=== PATIENT | male | born 1965 ===

== ENCOUNTER 2018-09-29 12:45 | Day surgery (SDC) | payer OTHER ==
[~2018-09-29] VITALS: Ht 182.9 cm; Wt 84.0 kg
== END 2018-09-29 17:40 | disposition home or self-care (01) ==
LOC: ORSCSDS 12:45
PROVIDERS: Student in an Organized Health Care Education/Training Program
PROC: 0DJD8ZZ Inspection of Lower Intestinal Tract, Via Natural or Artificial Opening Endoscopic (ICD-10-PCS; principal; 2018-09-29 14:00)
DX: Z12.11 Encounter for screening for malignant neoplasm of colon (principal); K57.30 Diverticulosis of large intestine without perforation or abscess without bleeding; Z86.718 Personal history of other venous thrombosis and embolism
CPT/HCPCS: J2704; J7120

== ENCOUNTER → 2019-01-25 | Outpatient (CLI) | payer OTHER | END | disposition home or self-care (01) | LOC: LAB SHORT 11:42 → LAB 11:42 | DX: J02.9 Acute pharyngitis, unspecified (principal) | CPT/HCPCS: 87081 ==